=== PATIENT | male | born 1975 | race Caucasian/White ===

== ENCOUNTER 2017-03-04 22:09 | Emergency (ER) | payer OTHER, MEDICARE ==
[~2017-03-04] VITALS: Ht 175.3 cm; Wt 81.6 kg
[~2017-03-04 22:09] MED LIST: FLEXERIL10 MG PO; PROTONIX 40MG T40 MG PO
--- NOTE | 2017-03-05 00:27 | ED THROAT/DENTAL COMPLAINT ---
History of Present Illness General Chief Complaint: General Adult Stated Complaint: "I CANT SWALLOW" PT CURRENTLY HAVING HICCUPS Source: patient, family Exam Limitations: no limitations Vital Signs & Intake/Output Vital Signs & Intake/Output Vital Signs Date Time Temp Pulse Resp B/P B/P Pulse O2 O2 Flow FiO2 Mean Ox Delivery Rate 03/05 0118 78 20 128/84 98 03/05 0001 97.7 67 20 125/78 98 Room Air 03/04 2355 Room Air 03/04 2212 96.3 80 20 139/88 98 Room Air ED Intake and Output 03/05 0000 03/04 1200 Intake Total Output Total Balance Patient 180 lb Weight Allergies Coded Allergies: NO KNOWN ALLERGIES (10/02/10) Reconcile Medications No Known Home Medications Triage Note: PT TO TRIAGE C/O INABILITY TO SWALLOW SINCE 1PM, WAS EATING PERSIAN FOOD WHEN IT BEGAN, UNSURE IF ANYTHING GOT STUCK. PT HICCUPING SINCE GETTING OUT OF CAR AND WALKING INTO ER. 02 SAT 98% ON RA. CLEAR LUNG SOUNDS. HX:TBI AND TRACH. Triage Nurses Notes Reviewed? yes Onset: Abrupt Duration: constant Timing: single episode today Severity: moderate Severity Numbers: 5 HPI: Patient is a 41-year-old male with a past medical history of traumatic brain injury and a remote history of tracheostomy placed approximately 30 years ago in which patient states that he has had previous episodes of esophageal impaction in which he presents since 1 AM eating Greek food and acutely having food impaction sensation into his esophagus or he's been unable to tolerate anything by mouth has had multiple episodes of nonbloody nonbilious emesis after trying to tolerate by mouth fluids. Patient is able to tolerate his own secretions. Denies any respiratory complaints. (Romel Isaac) Past History Travel History Traveled to [place] past 21 day No Medical History Any Pertinent Medical History? 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 No (Romel Isaac) Review of Systems Review of Systems Constitutional: Reports: no symptoms. EENTM: Reports: see HPI. Respiratory: Reports: no symptoms. Cardiovascular: Reports: no symptoms. GI: Reports: see HPI. Genitourinary: Reports: no symptoms. Musculoskeletal: Reports: no symptoms. Skin: Reports: no symptoms. Neurological/Psychological: Reports: no symptoms. Hematologic/Endocrine: Reports: no symptoms. Immunologic/Allergic: Reports: no symptoms. All Other Systems: Reviewed and Negative (Romel Isaac) Physical Exam Physical Exam General Appearance: no apparent distress, alert Head: atraumatic Eyes: Bilateral: normal appearance. Ears: Bilateral: canal normal. Nose: normal inspection Mouth/Throat: normal mouth inspection, pharynx normal Neck: normal inspection, supple, full range of motion Cardiovascular/Respiratory: normal breath sounds, normal peripheral pulses, regular rate/rhythm, no respiratory distress Neurologic/Psych: no motor/sensory deficits, awake, alert Skin: intact, normal color, warm/dry Core Measures ACS in differential dx? No Sepsis Present: No Sepsis Focused Exam Completed? No (Romel Isaac) Progress Differential Diagnosis: aspirated tooth, epiglottitis, Ludwigs angina, meningitis, odontogenic abscess, maru-tonsillar abscess, pharyngeal for. body, stomatitis/gingivitis, strep pharyngitis, tooth fracture Plan of Care: Orders Procedure Date/time Status XRY-SOFT TISSUE NECK 03/05 0026 Active Differential diagnosis includes food bolus esophageal impaction On initial examination patient was tolerating his secretions, patient resting comfortably at bedside, Patient was by mouth challenged with fluids which she was able tolerate however still has a mild sensation of the food bolus to his cricoid region X-ray will be obtained. Soft tissue of x-ray of was resulted showing no acute process. Patient was observed for approximately 90 minutes after by mouth intake in which there is no concerns of food bolus impaction. Patient was strongly advised to follow-up with her armoring machine operator. Upon discharge patient looks well no apparent distress patient was able to tolerate his own secretions no respiratory distress Most likely patient has symptoms from a resolved food bolus impaction. Patient was able to tolerate by mouth challenging on multiple occasions prior to discharge and was able to tolerate with no complications no vomiting Diagnostic Imaging: Viewed by Me: Radiology Read. Radiology Impression: no acute abnormality, no foreign body seen Comments: PATIENT: HUY MCKEON PRESENT AGE: 41 PATIENT ACCOUNT NO: [id number] : 73 LOCATION: [facility] ORDERING PHYSICIAN: Romel FARLEY SERVICE DATE: 03/05/17 EXAM TYPE: RAD - XRY-SOFT TISSUE NECK XR SOFT TISSUE NECK CLINICAL INDICATION: Food impaction of the esophagus. COMPARISON: None available per TECHNIQUE: 2 views of the soft tissue neck were obtained. FINDINGS: The epiglottis and aryepiglottic folds are normal. No radiopaque foreign bodies are identified. There is no prevertebral soft tissue swelling. No retropharyngeal gas. No acute osseous findings. Visualized upper lungs are clear. IMPRESSION: Unremarkable radiographs of the neck. DICTATED BY: Caesar Fabian MD DATE/TIME DICTATED:03/05/17 (Romel Isaac) Departure Departure Disposition: HOME OR SELF CARE Condition: Stable Clinical Impression Primary Impression: Food impaction of esophagus Referrals: Karma LOMELI,Jaguar Saldana (PCP/Family) Additional Instructions: As discussed begin drinking fluids and a soft diet to improve your symptoms, follow-up with your established armoring machine operator tomorrow for further evaluation treatment, if symptoms worsen return to emergency room Departure Forms: Customer Survey General Discharge Information Prescriptions: Current Visit Scripts No Known Home Medications (Romel Isaac) PA/DIRECTOR PUBLIC POLICY Co-Sign Statement Statement: ED Attending supervision documentation- I saw and evaluated the patient. I have also reviewed all the pertinent lab results and diagnostic results. I agree with the findings and the plan of care as documented in the PA's/DIRECTOR PUBLIC POLICY's documentation. x I have reviewed the ED Record and agree with the PA's/DIRECTOR PUBLIC POLICY's documentation. [] Additions or exceptions (if any) to the PAs/DIRECTOR PUBLIC POLICY's note and plan are summarized below: [] (Grace LOMELI,Aamir)
--- NOTE | 2017-03-05 00:58 | RADIOLOGY REPORT ---
XR SOFT TISSUE NECK CLINICAL INDICATION: Food impaction of the esophagus. COMPARISON: None available per TECHNIQUE: 2 views of the soft tissue neck were obtained. FINDINGS: The epiglottis and aryepiglottic folds are normal. No radiopaque foreign bodies are identified. There is no prevertebral soft tissue swelling. No retropharyngeal gas. No acute osseous findings. Visualized upper lungs are clear. IMPRESSION: Unremarkable radiographs of the neck.
[2017-03-05 01:18] VITALS: BP 128/84
== END 2017-03-05 01:18 ==
LOC: ERH 22:09
DX: T18.108A Unspecified foreign body in esophagus causing other injury, initial encounter (principal)
CPT/HCPCS: 70360

== ENCOUNTER 2017-11-20 17:48 | Emergency (ER) | payer OTHER, MEDICARE ==
--- NOTE | 2017-11-20 21:50 | ED GENERAL ADULT ---
History of Present Illness General Chief Complaint: Laceration Procedure Stated Complaint: +LAC ON ?LIGHTBULB, NOT UTD ON TETANUS Source: patient Exam Limitations: no limitations Vital Signs & Intake/Output Vital Signs & Intake/Output Vital Signs Date Time Temp Pulse Resp B/P B/P Pulse O2 O2 Flow FiO2 Mean Ox Delivery Rate 11/20 2153 97.8 68 18 127/72 98 Room Air 11/20 1828 97.4 72 16 122/76 96 Room Air Allergies Coded Allergies: NO KNOWN ALLERGIES (10/02/10) Reconcile Medications No Known Home Medications Triage Note: pt cut L pinky knuckle 3 hours ago on broken light bulb. bandaid in place. no active bleeding. unsure of last tetanus. pt brought broken lightbulb with him - asking if special precautions should be taken "because of what i cut my finger on" Triage Nurses Notes Reviewed? yes Onset: Abrupt Duration: hour(s): Timing: single episode today HPI: 41-year-old male with a history of TBI presenting with abrasions to left fifth digit sustained approximately 3 hours prior to arrival. Reports that he was changing a light bulb shattered and scraped his pinky finger. Denies numbness or paresthesias. Unsure of his last tetanus. (Lubna Nelson) Past History Travel History Traveled to [place] past 21 day No Medical History Any Pertinent Medical History? 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 No (Lubna Nelson) Review of Systems Review of Systems Constitutional: Reports: no symptoms. EENTM: Reports: no symptoms. Respiratory: Reports: no symptoms. Cardiovascular: Reports: no symptoms. GI: Reports: no symptoms. Genitourinary: Reports: no symptoms. Musculoskeletal: Reports: no symptoms. Skin: Reports: see HPI. Neurological/Psychological: Reports: no symptoms. Hematologic/Endocrine: Reports: no symptoms. Immunologic/Allergic: Reports: no symptoms. All Other Systems: Reviewed and Negative (Lubna Nelson) Physical Exam Physical Exam General Appearance: well developed/nourished, no apparent distress, alert, awake Comments: Gen.: Well-nourished, well-developed, no acute distress. Head: Normocephalic, atraumatic. Eyes: Normal inspection bilaterally Ears: Normal inspection bilaterally Nose: Normal inspection Neck: Normal inspection Lungs: clear to auscultation bilaterally, normnal breath sounds Heart: regular rate and rhythm Abdomen: soft and non-tender HAND: Left hand Inspection: 1 subcentimeter superficial abrasion over the dorsum of the MCP and dorsum of the PIP of the left fifth digit Palpation: No tenderness ROM: Unrestricted range of motion at all MCPs/PIPs/DIPs and IP joint Sensation: intact to median/radial/ulnar nerves Motor strength: 5/5 with digit flexion, extension, interosseous strength, and hand medical accounts receivable specialist strength Cap refill: <2 seconds Pulse: 2+ radial pulse Neurologic: alert and oriented x3, steady gait Skin: warm and dry Psychiatric: Normal mood and affect, no apparent delusions or hallucinations, behavior appropriate Core Measures ACS in differential dx? No CVA/TIA Diagnosis: No Sepsis Present: No Sepsis Focused Exam Completed? No (Lubna Nelson) Progress Differential Diagnoses I considered the following diagnoses in my evaluation of the patient: [Abrasion versus laceration versus foreign body versus tendon injury versus nerve injury versus vascular injury versus fracture] Plan of Care: Current Medications Sig/Hugo Start time Last Medication Dose Stop Time Status Admin Tetanus/Diphtheria 0.5 ML ONCE ONE 11/20 2144 UNVr Toxoids Adsorbed 11/20 2145 (Decavac) Patient has superficial abrasions on exam that do not require suture repair. His wounds were cleaned as described in the procedure note. Tetanus updated. Counseled on wound care and strict return precautions. Initial ED EKG: none (Lubna Nelson) Departure Departure Disposition: HOME OR SELF CARE Condition: Stable Clinical Impression Primary Impression: Abrasion Referrals: Karma LOMELI,Jaguar Saldana (PCP/Family) Additional Instructions: Keep the wound clean and dry. Follow-up with your primary care provider for reevaluation. Return to the emergency department for any new or worsening symptoms. Departure Forms: Customer Survey General Discharge Information Prescriptions: Current Visit Scripts No Known Home Medications (Lubna Nelson) PA/EASEMENT MAN Co-Sign Statement Statement: ED Attending supervision documentation- I saw and evaluated the patient. I have also reviewed all the pertinent lab results and diagnostic results. I agree with the findings and the plan of care as documented in the PA's/EASEMENT MAN's documentation. x I have reviewed the ED Record and agree with the PA's/EASEMENT MAN's documentation. [] Additions or exceptions (if any) to the PAs/EASEMENT MAN's note and plan are summarized below: [] (Grace LOMELI,Aamir) Procedures Additional Procedures Additional Procedures: abrasion cleaning Progress: Abrasions cleaned with sterile water and soap. They were dried and dressed with bacitracin and a Band-Aid. (Lubna Nelson) Critical Care Note Critical Care Note Critical Care Time: non-applicable (Lubna Nelson)
[2017-11-20 21:53] VITALS: BP 127/72
== END 2017-11-20 21:58 ==
LOC: ERH 17:48
DX: S60.417A Abrasion of left little finger, initial encounter (principal); W25.XXXA Contact with sharp glass, initial encounter; Y92.9 Unspecified place or not applicable; Y93.9 Activity, unspecified
CPT/HCPCS: 90471; 90714